=== PATIENT | female | born 1965 | race Caucasian/White ===

== ENCOUNTER 2022-09-20 13:16 | Outpatient (CLI) | payer BC | END 2022-09-20 13:17 | disposition home or self-care (01) | LOC: NM 13:16 | PROVIDERS: ATTEND Physician Assistant Medical | DX: R10.11 Right upper quadrant pain (principal); K76.0 Fatty (change of) liver, not elsewhere classified; R07.9 Chest pain, unspecified; R06.02 Shortness of breath | CPT/HCPCS: 78227; A9537 ==

== ENCOUNTER 2023-01-17 10:23 | Outpatient (CLI) | payer BC ==
[2023-01-17 12:05] LABS: #Basophils 0.1 10x3/uL (0.0-0.2); #Eosinphils 0.1 10x3/uL (0.0-0.5); #Monocytes 0.6 10x3/uL (0.0-1.1); #Neutrophils 4.9 10x3/uL (1.5-8.4); %Basophils 0.7 % (0.0-2.0); %Eosinophils 1.4 % (0.0-6.0); %Lymphocytes 33.1 % (18.0-47.0); %Monocytes 7.5 % (0.0-10.0); %Neutrophils 56.8 % (40.0-75.0); Hematocrit 43.4 % (34.9-44.5); Hemoglobin 14.4 g/dL (12.0-15.5); Mean Corpuscular HGB CONC 33.2 g/dL (32.0-36.0); Mean Corpuscular Hemoglobin 29.6 pg (27.0-33.0); Mean Corpuscular Volume 89.1 fl (81.6-98.3); Mean Platelet Volume 9.6 fl (7.4-10.4); Platelet Count 279 10x3/uL (150-450); RBC Distribution Width 13.4 % (11.5-14.5); Red Blood Cell (RBC) Count 4.87 10x6/uL (3.90-5.03); White Blood Cell (WBC) Count 8.6 10x3/uL (3.5-10.5)
[2023-01-17 12:21] LABS: ALT (SGPT) 22 U/L (8-55); AST (SGOT) 20 U/L (5-34); Albumin 4.2 g/dL (3.5-5.0); Alkaline Phosphatase 57 U/L (40-110); Anion Gap 15 mmol/L (10-20); BUN (Urea Nitrogen) 27 mg/dL (9.8-20.1); Bilirubin, Direct 0.2 mg/dL (0.1-0.3); Bilirubin, Total 0.5 mg/dL (0.2-1.2); Calc. Creatinine Clearance 0 mL/min (70-130); Carbon Dioxide 21 mmol/L (22-29); Chloride 104 mmol/L (98-107); Estimated GFR 91; Glucose 202 mg/dL (70-105); Potassium 4.1 mmol/L (3.5-5.1); Protein, Total 7.3 g/dL (6.0-8.3); Sodium 136 mmol/L (136-145)
== END 2023-01-17 10:24 | disposition home or self-care (01) ==
LOC: LABBT 10:23
PROVIDERS: ATTEND Surgery
DX: Z01.812 Encounter for preprocedural laboratory examination (principal); K82.8 Other specified diseases of gallbladder
CPT/HCPCS: 80048; 80076; 85025

== ENCOUNTER 2023-01-22 07:07 | Day surgery (SDC) | payer BC ==
[2023-01-17 10:54] VITALS: BMI 36.0
[2023-01-22] MEDS ORDERED: Midazolam HCl 2 mg/2 ml Vial ONE ×2 (09:13→10:53)
[2023-01-22] MEDS ORDERED: Acetaminophen 500 MG TAB ONE (09:13)
[2023-01-22] MEDS ORDERED: Indocyanine Green 25 MG/10 ML VIAL ONE (09:24)
[2023-01-22] MEDS ORDERED: Bupivacaine 0.25% HCL 30 ML VIAL ONE (09:24)
[2023-01-22] MEDS ORDERED: EPINEPHrine 1 MG/ML VIAL ONE (09:24)
[2023-01-22] MEDS ORDERED: Sodium Chloride 0.9% 100 ML ONE (09:33)
[2023-01-22] MEDS ORDERED: CEFAZOLIN 2 GM VIAL ONE (09:33)
[2023-01-22] MEDS ORDERED: fentaNYL PF 100 MCG/2 ML SYRINGE ONE (09:34)
[2023-01-22] MEDS ORDERED: SUGAMMADEX SODIUM 200 MG/2 ML VIAL ONE (09:34)
[2023-01-22] MEDS ORDERED: PHENYLEPHRINE-NS 100 MCG/ML 10 ML SYRINGE ONE (09:48)
[2023-01-22] MEDS ORDERED: Ondansetron PF 4 MG/2 ML Vial ONE ×2 (09:48→12:00)
[2023-01-22] MEDS ORDERED: Lidocaine 1% PF 5 ML VIAL ONE (09:48)
[2023-01-22] MEDS ORDERED: PROPOFOL 200 MG/20 ML VIAL ONE (09:48)
[2023-01-22] MEDS ORDERED: Rocuronium Bromide 10 MG/ML (10ML VIAL) ONE (09:48)
[2023-01-22] MEDS ORDERED: Ketorolac Tromethamine 30 MG/ML VIAL ONE (09:48)
[2023-01-22] MEDS ORDERED: Ipratropium/Albuterol 3 ML NEB ONE (11:17)
[2023-01-22] MEDS ORDERED: fentaNYL 50 mcg/mL 1 mL Vial ONE (11:32)
[2023-01-22] MEDS ORDERED: Scopolamine 1 mg/72 hour Patch ONE (12:55)
[2023-01-22] MEDS ORDERED: Dexamethasone 4 mg/ml Vial ONE (12:55)
[2023-01-22] MEDS ORDERED: Haloperidol Lactate 5 MG/ML VIAL ONE (12:57)
== END 2023-01-22 14:22 | disposition home or self-care (01) ==
LOC: SDC 07:07
PROVIDERS: ATTEND Surgery
PROC: 0FT44ZZ Resection of Gallbladder, Percutaneous Endoscopic Approach (ICD-10-PCS; principal; 2023-01-22)
DX: K82.8 Other specified diseases of gallbladder (principal); K81.9 Cholecystitis, unspecified
CPT/HCPCS: 88304; J0171; J1100; J1630; J1885; J2250; J2405; J2704; J3010; J3490; J7620; S0020

== ENCOUNTER 2023-04-09 10:51 | Emergency (ER) | payer BC ==
[2023-04-09] MEDS ORDERED: Ketorolac Tromethamine 30 MG (1 mL) VIAL ONE (11:14)
== END 2023-04-09 12:30 | disposition home or self-care (01) ==
LOC: ERS 10:51
DX: S09.90XA Unspecified injury of head, initial encounter (principal); M54.2 Cervicalgia; M54.50 Low back pain, unspecified; V89.2XXA Person injured in unspecified motor-vehicle accident, traffic, initial encounter
CPT/HCPCS: 70450; 72125; 72131; 96372; J1885